=== PATIENT | female | born 1955 | race Caucasian/White ===

== ENCOUNTER 2019-10-08 04:57 | Inpatient (IN) ==
[2019-10-08] MEDS ORDERED: *HR* Heparin 5,000 UNIT/ML VIAL IVP PRN ×2 (05:17)
[2019-10-08] MEDS ORDERED: *HR* Heparin 5,000 UNIT/ML VIAL IVP ONE (05:17)
[2019-10-08] MEDS ORDERED: *HR* Ticagrelor 90 MG TABLET PO ONE (05:17)
[2019-10-08] MEDS ORDERED: 0.9 % Sodium Chloride 1,000 ML IVC STA (05:20)
[2019-10-08] MEDS ORDERED: Heparin 25,000 UNIT/250 ML D5W 25,000 UNIT/250 ML IV.SOLN IVC SCH (05:30)
[2019-10-08 05:35] LABS: Basophils # 0.1 K/mcL (0.0-0.2); Basophils % 0.9 %; Eosinophils # 0.7 K/mcL (0.0-0.6); Eosinophils % 5.8 %; Hematocrit 42.6 % (35.3-44.9); Hemoglobin 14.4 g/dL (11.5-15.4); Immature Granulocytes % 0.4 % (0-4); Lymphocytes # 1.5 K/mcL (0.6-4.6); Lymphocytes % 11.8 %; Mean Corpuscular HGB Conc 33.8 g/dL (31.6-35.5); Mean Corpuscular Hemoglobin 30.4 pg (28.0-33.3); Mean Corpuscular Volume 89.9 fL (83.0-100.0); Mean Platelet Volume 10.8 fL (9.4-12.4); Monocytes # 0.5 K/mcL (0.0-1.3); Monocytes % 4.2 %; Neutrophils # 9.8 K/mcL (1.6-8.9); Platelet Count 331 K/mcL (140-400); Red Blood Count 4.74 M/mcL (3.82-4.97); Segmented Neutrophils % 76.9 %; White Blood Count 12.8 K/mcL (4.3-11.1)
[2019-10-08 05:40] LABS: Prothrombin Time 10.8 Seconds (9.4-12.1)
[2019-10-08 05:42] LABS: Activated Partial Thrombo Time 31.7 Seconds (26.0-36.0)
[2019-10-08] MEDS ORDERED: ISOVUE-370 200 ML INFUS..BTL ONE ×2 (05:45→05:52)
[2019-10-08] MEDS ORDERED: *HR* Heparin 10,000 UNIT/10 ML VIAL ONE ×2 (05:45→06:52)
[2019-10-08] MEDS ORDERED: Heparin 1,000 UNITS/500 mL 500 ML ONE (05:45)
[2019-10-08] MEDS ORDERED: 0.9 % Sodium Chloride 1,000 ML ONE ×2 (05:45→05:51)
[2019-10-08] MEDS ORDERED: Nitroglycerin 1,000 MCG/10 ML VIAL IV ONE (05:46)
[2019-10-08] MEDS ORDERED: *HR* Adenosine 6 MG/2 ML VIAL IVP ONE (05:50)
[2019-10-08] MEDS ORDERED: niCARdipine 20 MG/200 ML MLS IVC ONE (05:51)
[2019-10-08 05:57] LABS: Alanine Aminotransferase 14 Units/L (7-52); Albumin 3.8 g/dL (3.5-5.7); Albumin/Globulin Ratio 1.5 (1.1-2.2); Alkaline Phosphatase 75 Units/L (34-104); Aspartate Amino Transferase 15 Units/L (13-39); BUN/Creatinine Ratio 24 (6-26); Bilirubin,Total 0.4 mg/dL (0.3-1.0); Blood Urea Nitrogen 10 mg/dL (8-23); Calcium 9.1 mg/dL (8.6-10.3); Carbon Dioxide 28 mEq/L (23-29); Chloride 102 mEq/L (98-107); Globulin 2.6 g/dL (2.4-3.5); Glucose 172 mg/dL (70-105); Magnesium 1.7 mg/dL (1.6-2.6); Osmolality,Calculated 293 (280-300); Potassium 3.6 mEq/L (3.5-5.1); Sodium 140 mEq/L (136-145); Total Protein 6.4 g/dL (6.4-8.9); Troponin I < 0.03 ng/mL (< 0.04); eGFR For African Americans > 60 (> 60); eGFR For Non-African Americans > 60 (> 60)
[2019-10-08] MEDS ORDERED: *HR* Midazolam HCl 2 MG/2 ML VIAL ONE (06:07)
[2019-10-08] MEDS ORDERED: Perflutren Lipid Microsphere 1.3 ML in 0.9 % Sodium Chloride 8.7 ML IVP ONE (08:00)
[2019-10-08] MEDS: *HR* Ticagrelor 90 MG TABLET PO SCH ×2 (09:53→20:29)
[2019-10-08] MEDS: Aspirin 81 MG TAB.CHEW PO SCH (09:53)
[2019-10-09 05:54] LABS: Basophils % 0.5 %; Eosinophils # 0.3 K/mcL (0.0-0.6); Eosinophils % 3.9 %; Hematocrit 37.4 % (35.3-44.9); Immature Granulocytes % 0.2 % (0-4); Lymphocytes # 1.9 K/mcL (0.6-4.6); Lymphocytes % 22.9 %; Mean Corpuscular HGB Conc 33.2 g/dL (31.6-35.5); Mean Corpuscular Hemoglobin 29.8 pg (28.0-33.3); Mean Corpuscular Volume 89.9 fL (83.0-100.0); Mean Platelet Volume 11.1 fL (9.4-12.4); Monocytes # 0.8 K/mcL (0.0-1.3); Monocytes % 9.4 %; Neutrophils # 5.3 K/mcL (1.6-8.9); Platelet Count 249 K/mcL (140-400); Red Blood Count 4.16 M/mcL (3.82-4.97); Red Cell Distribution Width 13.2 % (11.5-14.5); Segmented Neutrophils % 63.1 %; White Blood Count 8.4 K/mcL (4.3-11.1)
[2019-10-09 05:55] LABS: Hemoglobin 12.4 g/dL (11.5-15.4)
[2019-10-09] MEDS ORDERED: *HR* Enoxaparin 40 MG/0.4 ML SYRINGE SQ SCH (06:00)
[2019-10-09 06:24] LABS: Alanine Aminotransferase 22 Units/L (7-52); Albumin 3.3 g/dL (3.5-5.7); Albumin/Globulin Ratio 1.7 (1.1-2.2); Alkaline Phosphatase 62 Units/L (34-104); Aspartate Amino Transferase 72 Units/L (13-39); BUN/Creatinine Ratio 28 (6-26); Bilirubin,Direct 0.1 mg/dL (0.0-0.2); Bilirubin,Indirect 0.5 mg/dL (0.0-1.0); Bilirubin,Total 0.6 mg/dL (0.3-1.0); Blood Urea Nitrogen 12 mg/dL (8-23); Calcium 8.6 mg/dL (8.6-10.3); Chloride 106 mEq/L (98-107); Chol/HDL Ratio 4.8 (0-4.9); Cholesterol 154 mg/dL (< 200); Glucose 121 mg/dL (70-105); HDL Cholesterol 32 mg/dL (40-59); LDL Cholesterol,Calculated 92 mg/dL (0-99); Osmolality,Calculated 291 (280-300); Potassium 3.3 mEq/L (3.5-5.1); Sodium 140 mEq/L (136-145); Total Protein 5.3 g/dL (6.4-8.9); Triglycerides 148 mg/dL (< 150); Troponin I 19.32 ng/mL (< 0.04); eGFR For African Americans > 60 (> 60); eGFR For Non-African Americans > 60 (> 60)
[2019-10-09 06:33] LABS: Carbon Dioxide 24 mEq/L (23-29); Magnesium 1.8 mg/dL (1.6-2.6)
[2019-10-09 08:17] LABS: Estimated Average Glucose 120 mg/dl
[2019-10-09] MEDS: *HR* Ticagrelor 90 MG TABLET PO SCH ×2 (08:55→20:18)
[2019-10-09] MEDS: Aspirin 81 MG TAB.CHEW PO SCH (08:55)
[2019-10-09] MEDS ORDERED: Potassium Chloride 40 MEQ, Lidocaine 1% 2 ML in 0.9 % Sodium Chloride 500 ML IVPB ONE (10:48)
[2019-10-09] MEDS ORDERED: lisinopriL 5 MG TABLET PO SCH (14:45)
[2019-10-10 04:59] LABS: Basophils # 0.1 K/mcL (0.0-0.2); Basophils % 0.7 %; Eosinophils # 0.4 K/mcL (0.0-0.6); Eosinophils % 5.3 %; Hematocrit 36.9 % (35.3-44.9); Hemoglobin 12.4 g/dL (11.5-15.4); Immature Granulocytes % 0.4 % (0-4); Lymphocytes # 1.5 K/mcL (0.6-4.6); Lymphocytes % 17.3 %; Mean Corpuscular HGB Conc 33.6 g/dL (31.6-35.5); Mean Corpuscular Volume 89.3 fL (83.0-100.0); Mean Platelet Volume 11.1 fL (9.4-12.4); Monocytes # 0.7 K/mcL (0.0-1.3); Neutrophils # 5.7 K/mcL (1.6-8.9); Platelet Count 230 K/mcL (140-400); Red Blood Count 4.13 M/mcL (3.82-4.97); Red Cell Distribution Width 13.2 % (11.5-14.5); Segmented Neutrophils % 68.3 %; White Blood Count 8.4 K/mcL (4.3-11.1)
[2019-10-10 05:15] LABS: Magnesium 1.7 mg/dL (1.6-2.6)
[2019-10-10] MEDS ORDERED: *HR* Enoxaparin 40 MG/0.4 ML SYRINGE SQ SCH (06:00)
[2019-10-10] MEDS: *HR* Ticagrelor 90 MG TABLET PO SCH (08:10)
[2019-10-10 08:43] LABS: BUN/Creatinine Ratio 30 (6-26); Blood Urea Nitrogen 13 mg/dL (8-23); Calcium 8.9 mg/dL (8.6-10.3); Carbon Dioxide 23 mEq/L (23-29); Chloride 106 mEq/L (98-107); Glucose 121 mg/dL (70-105); Osmolality,Calculated 289 (280-300); Potassium 3.7 mEq/L (3.5-5.1); Sodium 139 mEq/L (136-145); eGFR For African Americans > 60 (> 60); eGFR For Non-African Americans > 60 (> 60)
[2019-10-10] MEDS ORDERED: Potassium Chloride Elixir 20 MEQ/15 ML UDC PO ONE (08:51)
[2019-10-10] MEDS ORDERED: lisinopriL 5 MG TABLET PO SCH (09:00)
[2019-10-10] MEDS ORDERED: Aspirin 81 MG TAB.CHEW PO SCH (09:00)
[2019-10-10] MEDS ORDERED: Magnesium Oxide 400 MG TABLET PO SCH (09:00)
[2019-10-10 12:04] VITALS: BP 113/70
[2019-10-10 13:19] LABS: BUN/Creatinine Ratio 23 (6-26); Blood Urea Nitrogen 12 mg/dL (8-23); Calcium 9.2 mg/dL (8.6-10.3); Carbon Dioxide 24 mEq/L (23-29); Chloride 105 mEq/L (98-107); Glucose 107 mg/dL (70-105); Osmolality,Calculated 286 (280-300); Potassium 4.6 mEq/L (3.5-5.1); Sodium 138 mEq/L (136-145); eGFR For African Americans > 60 (> 60); eGFR For Non-African Americans > 60 (> 60)
== END 2019-10-10 15:15 | disposition home or self-care (01) | DRG 174 ==
LOC: EMEROOARM 04:57 → ICNU 05:19 → 3NENU 10-09 14:48
PROVIDERS: ADMIT Internal Medicine Interventional Cardiology; ATTEND Internal Medicine Interventional Cardiology

== ENCOUNTER 2020-12-19 19:35 | Inpatient (IN) ==
[2020-12-19] MEDS ORDERED: Morphine Sulfate 2 MG/ML SYRINGE IVP ONE (20:07)
[2020-12-19 20:19] LABS: Basophils % 0.5 %; Eosinophils # 0.2 K/mcL (0.0-0.6); Eosinophils % 2.5 %; Hematocrit 32.1 % (35.3-44.9); Hemoglobin 10.9 g/dL (11.5-15.4); Immature Granulocytes % 0.2 % (0-4); Lymphocytes % 16.1 %; Mean Corpuscular Hemoglobin 33.1 pg (28.0-33.3); Mean Corpuscular Volume 97.6 fL (83.0-100.0); Mean Platelet Volume 9.5 fL (9.4-12.4); Monocytes # 0.5 K/mcL (0.0-1.3); Monocytes % 7.9 %; Neutrophils # 4.4 K/mcL (1.6-8.9); Platelet Count 267 K/mcL (140-400); Red Blood Count 3.29 M/mcL (3.82-4.97); Segmented Neutrophils % 72.8 %; White Blood Count 6.1 K/mcL (4.3-11.1)
[2020-12-19 20:41] LABS: BUN/Creatinine Ratio 30 (6-26); Blood Urea Nitrogen 19 mg/dL (8-23); Calcium 8.3 mg/dL (8.6-10.3); Carbon Dioxide 20 mEq/L (23-29); Chloride 110 mEq/L (98-107); Glucose 108 mg/dL (70-105); Magnesium 1.5 mg/dL (1.6-2.6); Osmolality,Calculated 299 (280-300); Phosphorous 3.7 mg/dL (2.7-4.5); Potassium 2.7 mEq/L (3.5-5.1); Sodium 143 mEq/L (136-145); eGFR For African Americans > 60 (> 60); eGFR For Non-African Americans > 60 (> 60)
[2020-12-19] MEDS ORDERED: Potassium Chloride 40 MEQ, Lidocaine 1% 2 ML in 0.9 % Sodium Chloride 500 ML IVPB ONE (20:55)
[2020-12-19] MEDS ORDERED: Magnesium Sulfate 1 GM/102 ML PIGGYBACK IVPB ONE (20:56)
[2020-12-19] MEDS ORDERED: Isovue-370 500 ML BOTTLE IVP ONE (22:43)
[2020-12-19 23:01] LABS: C-Reactive Protein 13 mg/L (Less than 10)
[2020-12-20] MEDS ORDERED: Albuterol 2.5 MG/3 ML NEBULIZER IH PRN (01:25)
[2020-12-20] MEDS ORDERED: ALPRAZolam 1 MG TABLET PO PRN (01:25)
[2020-12-20] MEDS ORDERED: Naloxone 0.4 MG/ML INJ IVP PRN (01:28)
[2020-12-20] MEDS ORDERED: Ondansetron 4 MG/2 ML VIAL IVP PRN (01:28)
[2020-12-20] MEDS ORDERED: Acetaminophen 325 MG TABLET PO PRN (01:28)
[2020-12-20] MEDS ORDERED: Calcium Gluconate 1gm/50mL 1 GM/50 ML BAG IVPB ONE (02:46)
[2020-12-20 05:57] LABS: Hematocrit 30.2 % (35.3-44.9); Hemoglobin 9.8 g/dL (11.5-15.4); Mean Corpuscular HGB Conc 32.5 g/dL (31.6-35.5); Mean Corpuscular Hemoglobin 32.3 pg (28.0-33.3); Mean Corpuscular Volume 99.7 fL (83.0-100.0); Mean Platelet Volume 9.8 fL (9.4-12.4); Platelet Count 238 K/mcL (140-400); Red Blood Count 3.03 M/mcL (3.82-4.97); White Blood Count 5.1 K/mcL (4.3-11.1)
[2020-12-20 06:09] LABS: INR 1.2; Prothrombin Time 13.8 Seconds (9.4-12.1)
[2020-12-20 06:12] LABS: Activated Partial Thrombo Time 29.2 Seconds (26.0-36.0)
[2020-12-20 06:16] LABS: Magnesium 1.9 mg/dL (1.6-2.6)
[2020-12-20 06:21] LABS: BUN/Creatinine Ratio 32 (6-26); Blood Urea Nitrogen 20 mg/dL (8-23); Carbon Dioxide 24 mEq/L (23-29); Chloride 105 mEq/L (98-107); Chol/HDL Ratio 2.4 (0-4.9); Cholesterol 66 mg/dL (< 200); Glucose 100 mg/dL (70-105); HDL Cholesterol 27 mg/dL (40-59); LDL Cholesterol,Calculated 22 mg/dL (< 100); Osmolality,Calculated 295 (280-300); Potassium 3.4 mEq/L (3.5-5.1); Sodium 141 mEq/L (136-145); Triglycerides 87 mg/dL (< 150); eGFR For African Americans > 60 (> 60); eGFR For Non-African Americans > 60 (> 60)
[2020-12-20 06:27] LABS: Thyroid Stimulating Hormone 8.575 mcIU/mL (0.340-5.600)
[2020-12-20 06:36] LABS: Folate 11.5 ng/mL (3.0-16.0)
[2020-12-20] MEDS: amLODIPine 5 MG TABLET PO SCH (08:50)
[2020-12-20] MEDS: hydroCHLOROthiazide 25 MG TABLET PO SCH (08:51)
[2020-12-20] MEDS: carvediloL 6.25 MG TABLET PO SCH ×2 (08:51→17:45)
[2020-12-20] MEDS: Aspirin 81 MG TAB.CHEW PO SCH (08:51)
[2020-12-20] MEDS: Magnesium Oxide 400 MG TABLET PO SCH ×2 (08:51→21:09)
[2020-12-20 13:34] LABS: Triiodothyronine (T3) Free 3.06 pg/mL (2.50-3.90)
[2020-12-20 15:33] LABS: Estimated Average Glucose 111 mg/dl; Hemoglobin A1C 5.5 %
[2020-12-20] MEDS: *HR* Heparin 5,000 UNIT/ML VIAL SQ SCH (17:42)
[2020-12-20] MEDS: *HR* OxyCODONE Immed Rel 5 MG TABLET PO PRN (21:24)
[2020-12-21 03:08] LABS: Hematocrit 29.3 % (35.3-44.9); Hemoglobin 9.6 g/dL (11.5-15.4); Mean Corpuscular HGB Conc 32.8 g/dL (31.6-35.5); Mean Corpuscular Hemoglobin 32.4 pg (28.0-33.3); Mean Platelet Volume 9.6 fL (9.4-12.4); Platelet Count 238 K/mcL (140-400); Red Blood Count 2.96 M/mcL (3.82-4.97); Red Cell Distribution Width 13.9 % (11.5-14.5); White Blood Count 5.2 K/mcL (4.3-11.1)
[2020-12-21 03:27] LABS: BUN/Creatinine Ratio 33 (6-26); Blood Urea Nitrogen 20 mg/dL (8-23); Calcium 9.8 mg/dL (8.6-10.3); Carbon Dioxide 25 mEq/L (23-29); Chloride 103 mEq/L (98-107); Glucose 106 mg/dL (70-105); Osmolality,Calculated 293 (280-300); Potassium 3.4 mEq/L (3.5-5.1); Sodium 140 mEq/L (136-145); eGFR For African Americans > 60 (> 60); eGFR For Non-African Americans > 60 (> 60)
[2020-12-21] MEDS: *HR* Heparin 5,000 UNIT/ML VIAL SQ SCH ×2 (06:03→15:51)
[2020-12-21] MEDS: *HR* OxyCODONE Immed Rel 5 MG TABLET PO PRN ×2 (08:26→18:30)
[2020-12-21] MEDS: carvediloL 6.25 MG TABLET PO SCH ×2 (08:26→15:51)
[2020-12-21] MEDS: Magnesium Oxide 400 MG TABLET PO SCH ×2 (08:26→20:34)
[2020-12-21] MEDS: hydroCHLOROthiazide 25 MG TABLET PO SCH (08:26)
[2020-12-21] MEDS: Aspirin 81 MG TAB.CHEW PO SCH (08:27)
[2020-12-21] MEDS: amLODIPine 5 MG TABLET PO SCH (08:27)
[2020-12-21] MEDS ORDERED: Gadolinium Contrast Agent (WT Based) IV PRN (10:02)
[2020-12-21] MEDS ORDERED: Isovue-370 500 ML BOTTLE IVP ONE (15:55)
[2020-12-22 02:15] LABS: Hematocrit 30.3 % (35.3-44.9); Hemoglobin 9.8 g/dL (11.5-15.4); Mean Corpuscular HGB Conc 32.3 g/dL (31.6-35.5); Mean Platelet Volume 9.6 fL (9.4-12.4); Platelet Count 233 K/mcL (140-400); Red Blood Count 3.06 M/mcL (3.82-4.97); Red Cell Distribution Width 13.8 % (11.5-14.5); White Blood Count 4.7 K/mcL (4.3-11.1)
[2020-12-22 02:31] LABS: BUN/Creatinine Ratio 31 (6-26); Blood Urea Nitrogen 17 mg/dL (8-23); Carbon Dioxide 27 mEq/L (23-29); Chloride 101 mEq/L (98-107); Glucose 100 mg/dL (70-105); Osmolality,Calculated 294 (280-300); Potassium 3.2 mEq/L (3.5-5.1); Sodium 141 mEq/L (136-145); eGFR For African Americans > 60 (> 60); eGFR For Non-African Americans > 60 (> 60)
[2020-12-22] MEDS: *HR* Heparin 5,000 UNIT/ML VIAL SQ SCH ×2 (05:44→16:36)
[2020-12-22] MEDS: amLODIPine 5 MG TABLET PO SCH (08:58)
[2020-12-22] MEDS: Magnesium Oxide 400 MG TABLET PO SCH ×2 (08:58→20:44)
[2020-12-22] MEDS: hydroCHLOROthiazide 25 MG TABLET PO SCH (08:58)
[2020-12-22] MEDS: carvediloL 6.25 MG TABLET PO SCH ×2 (08:59→16:36)
[2020-12-22] MEDS: Aspirin 81 MG TAB.CHEW PO SCH (08:59)
[2020-12-22] MEDS: *HR* OxyCODONE Immed Rel 5 MG TABLET PO PRN ×2 (10:50→16:43)
[2020-12-23 05:02] LABS: Hematocrit 30.8 % (35.3-44.9); Mean Corpuscular HGB Conc 32.5 g/dL (31.6-35.5); Mean Corpuscular Hemoglobin 32.7 pg (28.0-33.3); Mean Corpuscular Volume 100.7 fL (83.0-100.0); Mean Platelet Volume 9.9 fL (9.4-12.4); Platelet Count 226 K/mcL (140-400); Red Blood Count 3.06 M/mcL (3.82-4.97); Red Cell Distribution Width 13.8 % (11.5-14.5); White Blood Count 4.9 K/mcL (4.3-11.1)
[2020-12-23 05:20] LABS: BUN/Creatinine Ratio 33 (6-26); Blood Urea Nitrogen 19 mg/dL (8-23); Calcium 10.1 mg/dL (8.6-10.3); Carbon Dioxide 26 mEq/L (23-29); Chloride 101 mEq/L (98-107); Glucose 141 mg/dL (70-105); Osmolality,Calculated 299 (280-300); Potassium 3.2 mEq/L (3.5-5.1); Sodium 142 mEq/L (136-145); eGFR For African Americans > 60 (> 60); eGFR For Non-African Americans > 60 (> 60)
[2020-12-23] MEDS: LEVOTHYROXINE PO SCH (05:55)
[2020-12-23] MEDS: *HR* Heparin 5,000 UNIT/ML VIAL SQ SCH ×2 (06:22→18:28)
[2020-12-23] MEDS: Aspirin 81 MG TAB.CHEW PO SCH (08:36)
[2020-12-23] MEDS: amLODIPine 5 MG TABLET PO SCH (08:36)
[2020-12-23] MEDS: Magnesium Oxide 400 MG TABLET PO SCH ×2 (08:37→21:12)
[2020-12-23] MEDS: carvediloL 6.25 MG TABLET PO SCH ×2 (08:37→18:27)
[2020-12-23] MEDS: hydroCHLOROthiazide 25 MG TABLET PO SCH (08:37)
[2020-12-23] MEDS: *HR* OxyCODONE Immed Rel 5 MG TABLET PO PRN ×2 (14:59→23:50)
[2020-12-24 01:27] LABS: Hematocrit 29.1 % (35.3-44.9); Hemoglobin 9.4 g/dL (11.5-15.4); Mean Corpuscular HGB Conc 32.3 g/dL (31.6-35.5); Mean Corpuscular Hemoglobin 32.4 pg (28.0-33.3); Mean Corpuscular Volume 100.3 fL (83.0-100.0); Mean Platelet Volume 9.5 fL (9.4-12.4); Platelet Count 211 K/mcL (140-400); Red Cell Distribution Width 13.9 % (11.5-14.5); White Blood Count 5.2 K/mcL (4.3-11.1)
[2020-12-24 01:48] LABS: BUN/Creatinine Ratio 35 (6-26); Blood Urea Nitrogen 17 mg/dL (8-23); Carbon Dioxide 27 mEq/L (23-29); Chloride 100 mEq/L (98-107); Glucose 110 mg/dL (70-105); Osmolality,Calculated 292 (280-300); Potassium 3.5 mEq/L (3.5-5.1); Sodium 140 mEq/L (136-145); eGFR For African Americans > 60 (> 60); eGFR For Non-African Americans > 60 (> 60)
[2020-12-24] MEDS: LEVOTHYROXINE PO SCH (05:33)
[2020-12-24] MEDS: *HR* Heparin 5,000 UNIT/ML VIAL SQ SCH (05:34)
[2020-12-24] MEDS: hydroCHLOROthiazide 25 MG TABLET PO SCH (08:02)
[2020-12-24] MEDS: amLODIPine 5 MG TABLET PO SCH (08:03)
[2020-12-24] MEDS: Aspirin 81 MG TAB.CHEW PO SCH (08:03)
[2020-12-24] MEDS: carvediloL 6.25 MG TABLET PO SCH (08:03)
[2020-12-24] MEDS: Magnesium Oxide 400 MG TABLET PO SCH (08:03)
[2020-12-24 15:55] VITALS: BP 121/70
== END 2020-12-24 17:39 | DRG 343 ==
LOC: 2ANU 19:35 → EMEROOARM 19:35 → SUATTDRO 23:04 → 2ANU 23:30
PROVIDERS: ADMIT Student in an Organized Health Care Education/Training Program; ATTEND Family Medicine